=== PATIENT | male | born 1995 | race Caucasian/White ===

== ENCOUNTER 2024-06-24 09:37 | Emergency (ER) | payer SELFPAY ==
[2024-06-24 09:45] VITALS: BP 113/62; PULSE 88; TEMP 36.4; O2SAT 99; BMI 19.8
[2024-06-24 09:55] VITALS: O2SAT 99
--- NOTE | 2024-06-24 09:57 | US_ITS ---
The [address] [address] Patient Name: EUGENIO AGUILAR MRN: [id number] date: 1995 Sex: M Assigned Patient Location: ER Current Patient Location: ER Accession/Order Number: [id number] Exam Date: 06/24/2024 10:29 Report Date: 06/24/2024 11:44 At the request of: JAMILA LEBLANC Procedure: US scrotum doppler EXAMINATION: US scrotum doppler HISTORY: Left side pain, rule out torsion COMPARISON: No relevant comparison available. TECHNIQUE: High-resolution sonographic imaging of the scrotum and contents was performed. FINDINGS: RIGHT: TESTICLE: Homogeneous echotexture. No visible mass. Color Doppler flow is present. Spectral Doppler demonstrates normal arterial waveform and flow, 6/2 cm/s (PSV/EDV), and normal venous wave flow averaging 1 cm/s. EPIDIDYMIS: Normal size and echogenicity. OTHER: Small varicocele. LEFT: TESTICLE: Homogeneous echotexture. No visible mass. Color Doppler flow is present. Spectral Doppler demonstrates arterial waveform and flow, 11/2 cm/s (PSV/EDV), and normal venous flow averaging 2 cm/s. EPIDIDYMIS: Slightly prominent. OTHER: Limited evaluation for varicocele, but varicocele suspected. No free fluid. OTHER: Abnormal skin thickening of the midline scrotum, 10 mm. US/US scrotum doppler IMPRESSION: 1. Slight increased vascularity of the left testicle and epididymis compared to the right and minimally prominent left epididymis; suspect epididymitis/orchitis. 2. No torsion. 3. Abnormal skin thickening; likely inflammatory. Electronically authenticated by: GLYNN SANTIZO Date: 06/24/2024 11:44
--- NOTE | 2024-06-24 09:58 | ED.MALEGU1 ---
HPI - Male Genitourinary General Chief complaint: Abdominal Pain Stated complaint: lower pain Time Seen by Provider: 06/24/24 09:53 Source: patient Mode of arrival: Wheelchair Limitations: no limitations History of Present Illness HPI Narrative: 28-year-old male presents for left testicular pain which he has had continuously since 3 or 4:00 yesterday afternoon, about 19 hours. The pain is only on the left side and it is continuous and he is worried about torsion. There was no injury or trauma. He has been nauseous. Related Data Home Medications ?Medication ?Instructions ?Recorded ?Confirmed No Known Home Medications 06/24/24 06/24/24 Previous Rx's ?Medication ?Instructions ?Recorded acetaminophen 300 mg-codeine 30 mg 1 tab PO Q6H PRN pain 5 days #20 06/24/24 tablet tabs doxycycline hyclate 100 mg capsule 100 mg PO BID 10 days #20 caps 06/24/24 ibuprofen 800 mg tablet 800 mg PO Q8H PRN pain #20 tabs 06/24/24 Allergies Allergy/AdvReac Type Severity Reaction Status Date / Time No Known Drug Allergies Allergy Verified 06/24/24 09:45 Review of Systems ROS Narrative A ten point review of systems is negative except as noted above. Exam Narrative Exam Narrative: Nurses note and vital signs reviewed and patient is not hypoxic. General: The patient appears uncomfortable. Skin: Warm, dry, no pallor noted. There is no rash noted. Head: Normocephalic, atraumatic Eye: Normal conjunctiva, no drainage Ears, Nose, Mouth, and Throat: oral mucosa is moist. Nares patent. Cardiovascular: Regular Rate and Rhythm Respiratory: Patient is in no distress, no accessory muscle use, lungs are clear to auscultation, no wheezing, rales or rhonchi Back: non-tender GI: Soft and nontender : There is left hemiscrotal fullness. He has tenderness as well Musculoskeletal: The patient has no evidence of calf tenderness, no pitting edema, symmetrical pulses noted bilaterally Neurological: A&O, normal speech Psychiatric: Cooperative Constitutional Vital Signs, click to edit/add: Last Vital Signs Temp 97.6 F 06/24/24 09:45 Pulse 88 06/24/24 09:45 Resp 18 06/24/24 09:45 BP 113/62 06/24/24 09:45 Pulse Ox 99 06/24/24 09:55 O2 Del Method Room Air 06/24/24 09:55 Course Vital Signs Vital signs: Vital Signs Temperature 97.6 F 06/24/24 09:45 Pulse Rate 88 06/24/24 09:45 Respiratory Rate 18 06/24/24 09:45 Blood Pressure 113/62 06/24/24 09:45 Pulse Oximetry 99 06/24/24 09:45 Oxygen Delivery Method Room Air 06/24/24 09:45 Temperature 97.6 F 06/24/24 09:45 Pulse Rate 88 06/24/24 09:45 Respiratory Rate 18 06/24/24 09:45 Blood Pressure 113/62 06/24/24 09:45 Pulse Oximetry 99 06/24/24 09:55 Oxygen Delivery Method Room Air 06/24/24 09:55 MDM - Male Genitourinary MDM Narrative Medical decision making narrative: Epididymitis is identified on the ultrasound. She is given IM Rocephin here and prescribed doxycycline. Treatment diagnosis and follow-up were discussed with the patient. Differential Diagnosis Differential diagnosis: Likely epididymitis and other (Testicular torsion) Lab Data Attestation: I reviewed the patient's lab results. Labs: Lab Results 06/24/24 Range/Units 10:04 WBC 11.3 H (4.0-11.0) 10^3/uL RBC 4.27 L (4.70-6.10) 10^6/uL Hgb 14.2 (14.0-18.0) g/dL Hct 39.0 L (42.0-54.0) % MCV 91.3 (80.0-94.0) fL MCH 33.3 (25.9-34.0) pg MCHC 36.4 H (29.9-35.2) g/dL RDW 11.5 (11.0-15.0) % Plt Count 214 (150-450) 10^3/uL MPV 11.1 (9.5-13.5) fL Neut % (Auto) 79.3 H (43.0-75.0) % Lymph % (Auto) 14.5 L (20.5-60.0) % Hopkins % (Auto) 4.9 (1.7-12.0) % Eos % (Auto) 0.7 L (0.9-7.0) % Baso % (Auto) 0.3 (0.2-2.0) % Neut # (Auto) 9.0 H (1.4-6.5) 10^3/uL Lymph # (Auto) 1.6 (1.2-3.8) 10^3/uL Hopkins # (Auto) 0.6 (0.3-0.8) 10^3/uL Eos # (Auto) 0.1 (0.0-0.7) 10^3/uL Baso # (Auto) 0.0 (0.0-0.1) 10^3/uL Abs Immat Gran (auto) 0.03 (0.00-0.03) 10^3/uL Imm/Tot Granulo (auto) 0.3 (0.0-0.5) % Sodium 143 (136-145) mmol/L Potassium 3.7 (3.5-5.1) mmol/L Chloride 105 (98-107) mmol/L Carbon Dioxide 23.9 (21.0-32.0) mmol/L Anion Gap 17.8 BUN 6.0 L (7.0-18.0) mg/dL Creatinine 0.83 (0.70-1.30) mg/dL Est GFR ( Amer) >60 (>=60 mL/min/1.73m^2) Est GFR (Non-Af Amer) >60 (>=60 mL/min/1.73m^2) BUN/Creatinine Ratio 7.2 Glucose 123 H (74-106) mg/dL Calcium 8.8 (8.5-10.1) mg/dL Imaging Data Scrotal ultrasound: Radiologist's impression: ITS Impressions Scrotum Ultrasound 06/24/24 09:57 IMPRESSION: 1. Slight increased vascularity of the left testicle and epididymis compared to the right and minimally prominent left epididymis; suspect epididymitis/orchitis. 2. No torsion. 3. Abnormal skin thickening; likely inflammatory. Electronically authenticated by: GLYNN SANTIZO Date: 06/24/2024 11:44 Discharge Plan Discharge Chief Complaint: Abdominal Pain Clinical Impression: Acute epididymitis Patient Disposition: Home, Self-Care Time of Disposition Decision: 12:34 Condition: Good Mode of Transportation: Private Vehicle Prescriptions / Home Meds: New acetaminophen-codeine 300-30 mg tablet 1 tab PO Q6H PRN (Reason: pain) 5 Days Qty: 20 0RF doxycycline hyclate 100 mg capsule 100 mg PO BID 10 Days Qty: 20 0RF ibuprofen 800 mg tablet 800 mg PO Q8H PRN (Reason: pain) Qty: 20 0RF No Action No Known Home Medications Print Language: Georgian Instructions: Epididymitis (ED) Referrals: Physician,Non-Staff, MD [Primary Care Provider] - 1 week
[2024-06-24] MEDS: MORPHINE SULFATE 4 MG/ML VIAL IV (10:09)
[2024-06-24 10:11] LABS: Basophils Percent Auto 0.3 % (0.2-2.0); Eosinophils Absolute Auto 0.1 10^3/uL (0.0-0.7); Eosinophils Percent Auto 0.7 % (0.9-7.0); Hemoglobin 14.2 g/dL (14.0-18.0); Immature Granulocytes Abs Auto 0.03 10^3/uL (0.00-0.03); Immature Granulocytes Pct Auto 0.3 % (0.0-0.5); Lymphocytes Absolute Auto 1.6 10^3/uL (1.2-3.8); Lymphocytes Percent Auto 14.5 % (20.5-60.0); Mean Corpuscular HGB Conc 36.4 g/dL (29.9-35.2); Mean Corpuscular Hemoglobin 33.3 pg (25.9-34.0); Mean Corpuscular Volume 91.3 fL (80.0-94.0); Mean Platelet Volume 11.1 fL (9.5-13.5); Monocytes Absolute Auto 0.6 10^3/uL (0.3-0.8); Monocytes Percent Auto 4.9 % (1.7-12.0); Neutrophils Percent Auto 79.3 % (43.0-75.0); Platelet Count 214 10^3/uL (150-450); Red Blood Count 4.27 10^6/uL (4.70-6.10); Red Cell Distribution Width 11.5 % (11.0-15.0); White Blood Count 11.3 10^3/uL (4.0-11.0)
[2024-06-24 10:21] LABS: Anion Gap 17.8; BUN Creatinine Ratio 7.2; Calcium 8.8 mg/dL (8.5-10.1); Carbon Dioxide 23.9 mmol/L (21.0-32.0); Chloride 105 mmol/L (98-107); Estimated GFR (African America >60 (>=60 mL/min/1.73m^2); Estimated GFR (Non-African Ame >60 (>=60 mL/min/1.73m^2); Glucose 123 mg/dL (74-106); Potassium 3.7 mmol/L (3.5-5.1); Sodium 143 mmol/L (136-145)
[2024-06-24] MEDS: ONDANSETRON PF 4 MG/2 ML VIAL IV ×2 (10:31→12:34)
[2024-06-24] MEDS: CEFTRIAXONE 500 MG, LIDOCAINE HCL/PF 1 ML IM (12:34)
[2024-06-24 12:53] LABS: Bilirubin Urine NEGATIVE (NEGATIVE); Blood Urine NEGATIVE (NEGATIVE); Clarity Urine CLEAR (CLEAR); Color Urine LT. YELLOW (YELLOW); Glucose Urine UA NEGATIVE (NEGATIVE); Ketones Urine 40 mg/dL (NEGATIVE); Leukocyte Esterase Urine NEGATIVE (NEGATIVE); Nitrite Urine NEGATIVE (NEGATIVE); Protein Urine TRACE mg/dL (NEG/TRACE); Specific Gravity Urine 1.025 (1.005-1.025); Urobilinogen Urine 0.2 EU/dL (0.2-1.0)
[2024-06-24 13:00] LABS: Bacteria Urine TRACE #/HPF (NONE SEEN); Cast Seen? NONE SEEN #/LPF (NONE SEEN); Crystals Seen? None Seen #/HPF (None Seen); Mucus Urine SMALL (NONE SEEN); RBC Urine NONE SEEN #/HPF (0-2); Squamous Epithelial Cell Urine FEW #/LPF (NONE/RARE); Urine Culture Indicated NO; WBC Urine NONE SEEN #/HPF (NONE SEEN)
[2024-06-26 07:09] LABS: Neisseria gonorrhoeae, NAA Negative (Negative)
== END 2024-06-24 12:44 | disposition home or self-care (01) ==
PROVIDERS: Emergency Provider Emergency Medicine
DX: N45.1 Epididymitis (principal)
CPT/HCPCS: 36415; 76870; 80048; 81001; 85025; 87491; 87591; 93976; 96372; 96374; 96375; 96376; 99284; J0696; J2270; J2405